=== PATIENT | male | born 1985 | race African-American/Black ===

== ENCOUNTER 2024-03-29 23:16 | Emergency (ER) | payer OTHER ==
[~2024-03-29] VITALS: Ht 170.2 cm; Wt 65.0 kg
[~2024-03-29 23:16] MED LIST: BACL-141 PO; FERR-63 PO; MELA3TAB40 PO; QUET50TA PO; SUCR1TAB30 PO
[2024-03-29 23:23] VITALS: BP 107/80; PULSE 59; RESP 18; O2SAT 100
[2024-03-30 09:27] VITALS: TEMP 98.1
[2024-03-30] MEDS: ACETAMINOPHEN 325MG TABLET PO ONE (09:27)
[2024-04-02] MEDS ORDERED: SUCR1TAB30 PO (15:40)
[2024-04-02] MEDS ORDERED: FERR-63 PO (15:40)
[2024-04-02] MEDS ORDERED: QUET50TA PO (15:40)
[2024-04-02] MEDS ORDERED: BACL-141 PO (15:40)
[2024-04-02] MEDS ORDERED: MELA3TAB40 PO (15:40)
== END 2024-03-30 10:36 | disposition home or self-care (01) ==
LOC: ER 23:16
DX: R53.1 Weakness (principal); F12.10 Cannabis abuse, uncomplicated; Z79.899 Other long term (current) drug therapy; Z93.3 Colostomy status
CPT/HCPCS: 99283

== ENCOUNTER 2024-07-24 01:28 | Emergency (ER) | payer OTHER ==
[~2024-07-24] VITALS: Ht 177.8 cm; Wt 78.0 kg
[2024-07-24 01:30] VITALS: BP 122/90; PULSE 73; RESP 18; TEMP 37; O2SAT 96
[2024-07-24] MEDS: ACETAMINOPHEN 325MG TABLET PO ONE (02:26)
[2024-07-24 03:03] LABS: BASOPHILS % 1.4 % (0.0-2.0); DIFFERENTIAL COMMENT 0; HEMATOCRIT. 31.3 % (42.0-52.0); HEMOGLOBIN. 10.1 g/dL (14.0-18.0); LYMPHOCYTES % 27.4 % (20.0-50.0); MEAN CORPUSCULAR HGB CONC 32.2 g/dL (31.0-37.0); MEAN CORPUSCULAR VOLUME 74.6 fL (80.0-94.0); MEAN PLATELET VOLUME 8.3 fl (7.4-10.4); MONOCYTES % 8.8 % (2.0-8.0); NEUTROPHILS % 56.4 % (40.0-76.0); PLATELET 206 x1000/uL (130-400); RED CELL DISTRIBUTION WIDTH 20.6 % (11.6-14.6); WHITE BLOOD COUNT 6.4 x1000/uL (4.5-11.0)
[2024-07-24 03:09] LABS: CHLORIDE 106 mEq/L (98-107); POTASSIUM 3.2 mEq/L (3.5-5.1); SODIUM 139 mEq/L (136-145)
[2024-07-24 03:10] LABS: CARBON DIOXIDE 24 mEq/L (21-32)
[2024-07-24 03:11] LABS: CALCIUM 8.7 mg/dL (8.7-10.4)
[2024-07-24 03:15] LABS: CREATININE 0.9 mg/dL (0.6-1.3); GLUCOSE 105 mg/dL (70-105); UREA NITROGEN BLOOD 7 mg/dL (9-23)
[2024-07-24 03:18] LABS: TROPONIN I HIGH SENSITIVITY < 4 ng/L (3.0-53)
== END 2024-07-24 05:13 | disposition home or self-care (01) ==
LOC: ER 01:28
DX: R07.89 Other chest pain (principal); Z79.899 Other long term (current) drug therapy; Z93.3 Colostomy status
CPT/HCPCS: 80048; 85025; 84484; 36415; 93005; 99284; Z7610

== ENCOUNTER 2024-08-08 07:54 | Emergency (ER) | payer OTHER ==
[~2024-08-08] VITALS: Ht 175.3 cm; Wt 64.0 kg
[2024-08-08 07:59] VITALS: O2SAT 97
[2024-08-08 08:52] VITALS: BP 123/79; PULSE 82; RESP 16; TEMP 36.7; O2SAT 99
== END 2024-08-08 08:53 | disposition home or self-care (01) ==
LOC: ER 07:54
DX: Z93.3 Colostomy status (principal); Z79.899 Other long term (current) drug therapy
CPT/HCPCS: 99281